=== PATIENT | female | born 1980 | race Two or more races ===

== ENCOUNTER 2017-07-05 06:16 | Emergency (ER) | payer OTHER ==
[~2017-07-05] VITALS: Ht 160 cm; Wt 71.4 kg
[2017-07-05] MEDS ORDERED: BACTRIM,SEPT1 TABLET PO (07:56)
[2017-07-05] MEDS ORDERED: TYLENOL WITH C1 EACH PO (07:56)
[2017-07-05 08:24] VITALS: BP 120/80
== END 2017-07-05 08:25 | disposition home or self-care (01) ==
LOC: EME 06:16
PROC: 0H95XZZ Drainage of Chest Skin, External Approach (ICD-10-PCS; principal; 2017-07-05)
DX: L02.213 Cutaneous abscess of chest wall (principal)
CPT/HCPCS: 99281; 99284